=== PATIENT | female | born 1990 | race Caucasian/White ===

== ENCOUNTER 2024-07-10 17:45 | Inpatient (IN) | payer BC ==
[2024-07-10 20:54] VITALS: BMI 25.0
[2024-07-10] MEDS: Lactated Ringer's 1,000 ML IV SCH (21:25)
[2024-07-10] MEDS ORDERED: Methylergonovine 0.2 MG/ML VIAL IM PRN (21:45)
[2024-07-10] MEDS ORDERED: Carboprost 250 MCG/ML AMP IM PRN (21:45)
[2024-07-10] MEDS ORDERED: Misoprostol 200 MCG TAB PR PRN (21:45)
[2024-07-10] MEDS ORDERED: Acetaminophen 500 MG TAB PO PRN (21:45)
[2024-07-10] MEDS ORDERED: HYDROcodone/Acetaminophen 5/325 mg Tablet PO PRN ×2 (21:45)
[2024-07-10] MEDS ORDERED: Ibuprofen 800 MG TAB PO PRN (21:45)
[2024-07-10] MEDS ORDERED: Lidocaine 1% (PF) 30 ML VIAL SC PRN (21:45)
[2024-07-10] MEDS ORDERED: Promethazine HCl 25 MG/ML VIAL IM PRN (21:45)
[2024-07-10] MEDS ORDERED: Tranexamic Acid 1,000 MG/10 ML VIAL IVP PRN (21:45)
[2024-07-10] MEDS ORDERED: Diphenoxylate HCl/Atropine Tablet PO PRN ×2 (21:45)
[2024-07-10] MEDS ORDERED: hydrALAZINE 20 MG/ML VIAL SLOW IVP PRN (21:45)
[2024-07-10] MEDS ORDERED: Oxytocin 30 units/NS 500 ML 500 ML IV SCH ×2 (21:45→22:00)
[2024-07-10] MEDS ORDERED: Zolpidem Tartrate 5 MG TAB PO PRN (21:45)
[2024-07-10] MEDS: Misoprostol 100 MCG TAB VAG SCH (22:00)
[2024-07-10 22:18] LABS: Hematocrit 38.6 % (34.9-44.5); Hemoglobin 13.2 g/dL (12.0-15.5); Mean Corpuscular HGB CONC 34.2 g/dL (32.0-36.0); Mean Corpuscular Hemoglobin 30.3 pg (27.0-33.0); Mean Corpuscular Volume 88.5 fL (81.6-98.3); Mean Platelet Volume 11.9 fL (7.4-10.4); Platelet Count 186 10x3/uL (150-450); RBC Distribution Width 13.2 % (11.5-14.5); Red Blood Cell (RBC) Count 4.36 10x6/uL (3.90-5.03); White Blood Cell (WBC) Count 11.44 10x3/uL (3.5-10.5)
[2024-07-10 23:07] LABS: HBsAg Index 0.18 S/CO (0-0.99); Hep B Surf Ag - L&D Non-Reactive S/CO (NonReactive)
[2024-07-10 23:08] LABS: Syphilis Antibody Nonreactive (Nonreactive); Syphilis Antibody Index 0.07 S/CO (<1.00 Non-Reactive)
[2024-07-11] MEDS: fentaNYL 50 mcg/mL 1 mL Vial SLOW IVP PRN (07:42)
[2024-07-11] MEDS: Ondansetron PF 4 MG/2 ML Vial IVP PRN (08:56)
[2024-07-11] MEDS: fentaNYL/Ropivacaine Epidural 100 ML ONE (08:56)
[2024-07-11] MEDS ORDERED: Naloxone HCl 0.4 mg/ml Vial IVP PRN ×2 (09:53)
[2024-07-11] MEDS ORDERED: diphenhydrAMINE 50 MG/ML VIAL IVP PRN (09:53)
[2024-07-11] MEDS ORDERED: Moisturizing Cream (Eucerin) 113 GM JAR TOP PRN (09:53)
[2024-07-11] MEDS ORDERED: Lactated Ringer's 500 ML IV PRN (09:53)
[2024-07-11] MEDS ORDERED: Ondansetron PF 4 MG/2 ML Vial IVP PRN (09:53)
[2024-07-11] MEDS ORDERED: Acetaminophen 325 MG TAB PO PRN (09:53)
[2024-07-11] MEDS ORDERED: ePHEDrine Sulfate 50 MG/10 ML VIAL SLOW IVP PRN (09:53)
[2024-07-11] MEDS ORDERED: Promethazine HCl 25 MG/ML VIAL IM PRN (09:53)
[2024-07-11] MEDS ORDERED: Communication Order-Pharmacy FS SCH (10:00)
[2024-07-11] MEDS ORDERED: fentaNYL 2 mcg/Ropivacaine 0.2% Epidural 100 ML CADD EPIDURAL SCH (10:00)
[2024-07-11] MEDS ORDERED: Lanolin Ointment 7 GM TUBE TOP PRN (19:25)
[2024-07-11] MEDS ORDERED: Bisacodyl 10 MG SUPP PR PRN (19:25)
[2024-07-11] MEDS ORDERED: hydrALAZINE 20 MG/ML VIAL SLOW IVP PRN (19:25)
[2024-07-11] MEDS ORDERED: Boostrix 0.5 ML (Tdap) VIAL (>/=7 yrs of age) IM ONE (19:25)
[2024-07-11] MEDS ORDERED: Milk Of Magnesia 30 ML UDCUP PO PRN (19:25)
[2024-07-11] MEDS ORDERED: Preparation H Ointment 28 GM TUBE PR PRN (19:25)
[2024-07-11] MEDS: Docusate 100 MG CAP PO SCH (21:06)
[2024-07-11] MEDS: Ibuprofen 800 MG TAB PO SCH (21:06)
[2024-07-11] MEDS: Ferrous Sulfate 325 MG TAB PO SCH (22:12)
[2024-07-12] MEDS: Prenatal Vitamin 1 TAB PO SCH (08:23)
[2024-07-12] MEDS: Ferrous Sulfate 325 MG TAB PO SCH (08:23)
[2024-07-12] MEDS: Benzocaine-Menthol 82.5 ML CAN TOP PRN (10:33)
[2024-07-12] MEDS: traMADol HCl 50 MG TAB PO PRN (14:49)
[2024-07-13 12:15] VITALS: BP 122/70; TEMP 98
== END 2024-07-13 18:10 | disposition home or self-care (01) | DRG 807 ==
LOC: CSHLD 17:45 → CSHPP 07-11 19:55
PROVIDERS: ADMIT Obstetrics & Gynecology; ATTEND Obstetrics & Gynecology
PROC: 10E0XZZ Delivery of Products of Conception, External Approach (ICD-10-PCS; principal; 2024-07-10)
PROC: 0W8NXZZ Division of Female Perineum, External Approach (ICD-10-PCS; 2024-07-10)
PROC: 3E0P7VZ Introduction of Hormone into Female Reproductive, Via Natural or Artificial Opening (ICD-10-PCS; 2024-07-10)
DX: O80 Encounter for full-term uncomplicated delivery (principal); Z37.0 Single live birth; Z3A.39 39 weeks gestation of pregnancy
CPT/HCPCS: 36415; 51702; 85027; 86780; 86850; 86900; 86901; 87340; J2405; J3010; J7120